=== PATIENT | female | born 1975 | race Caucasian/White ===

== ENCOUNTER 2019-12-06 15:40 | Emergency (ER) | payer OTHER ==
[~2019-12-06] VITALS: Ht 175.3 cm; Wt 99.8 kg
[2019-12-06 15:40] VITALS: BP 144/72
[~2019-12-06 15:40] MED LIST: BUPR-96
--- NOTE | 2019-12-06 16:50 | NUR ---
Patient discharged to home in stable condition. Written and verbal after care instructions given. Patient verbalizes understanding of instruction.
== END 2019-12-06 16:53 | disposition home or self-care (01) ==
LOC: ER 16:43
DX: K04.7 Periapical abscess without sinus (principal); I10 Essential (primary) hypertension; Z60.2 Problems related to living alone; Z79.899 Other long term (current) drug therapy; Z86.73 Personal history of transient ischemic attack (TIA), and cerebral infarction without residual deficits